=== PATIENT | male | born 1980 | race Caucasian/White ===

== ENCOUNTER 2019-08-10 03:00 | Inpatient (IN) | payer MEDICARE ==
[~2019-08-10] VITALS: Ht 195.6 cm; Wt 121.2 kg
[~2019-08-10 03:00] MED LIST: CARB200T PO; CLON1TAB PO; ESOM20CA PO; RISP1TAB45 PO
[2019-08-10] MEDS ORDERED: CARB200T PO ×2 (03:28→05:18)
[2019-08-10] MEDS ORDERED: ACETAMINOPHEN 500 MG TABLET PO ONE (03:30)
[2019-08-10] MEDS ORDERED: SODIUM CHLORIDE 0.9% 1,000ML IVBOLUS ONE ×2 (03:30→04:30)
[2019-08-10] MEDS ORDERED: IBUPROFEN 800 MG TABLET ONE (03:34)
--- NOTE | 2019-08-10 03:40 | NUR ---
BREAK RN: PT. REPORTS HE CAN'T TAKE TYLENOL IT INTERFERES WITH HIS OTHER MEDS PER HIS MD. DISCUSSED WITH DR. COOPER AND 800MG OF PO IBUPROFEN TO BE GIVEN INSTEAD. PT. REPORTS HIS LAST DOES OF IBUPROFEN WAS AT 8PM LAST NIGHT. LAB AT FOR BLOOD DRAW; MADDI FERNÁNDEZ WORKING ON IV START.
[2019-08-10 03:56] LABS: MEAN CORPUSCULAR HEMOGLOBIN 31.2 pg (27.5-34.5); MEAN CORPUSCULAR HGB CONC 33.6 g/dL (33.2-36.2); MEAN PLATELET VOLUME 7.9 fL (7.4-10.4); PLATELET COUNT 171 x10^3/uL (130-400); RED CELL DISTRIBUTION WIDTH 13.6 % (9.4-14.8)
[2019-08-10 04:07] LABS: ALANINE AMINOTRANSFERASE 25 U/L (12-78); ALBUMIN 3.7 g/dL (3.4-5.0); ANION GAP 5 mmol/L (5-15); CALCIUM 8.4 mg/dL (8.5-10.1); CHLORIDE 104 mmol/L (98-107); CREATININE 1.31 mg/dL (0.7-1.3)
[2019-08-10 04:12] LABS: ALKALINE PHOSPHATASE 78 U/L (45-117); BILIRUBIN,TOTAL 0.7 mg/dL (0.2-1.0); TOTAL PROTEIN 7.4 g/dL (6.4-8.2); TROPONIN I < 0.015 ng/mL (0.000-0.045)
[2019-08-10 04:18] LABS: MD YES
[2019-08-10 04:19] LABS: BAND#(MANUAL) 1.36 x10^3/uL; BANDS%(MANUAL) 10 % (0-7); LYMPH#(MANUAL) 1.22 x10^3/uL (1-3.4); LYMPHS% (MANUAL) 9 % (22-44); REACTIVE LYMPHS # (MANUAL) 0.27 x10^3/uL (0-0); REACTIVE LYMPHS % (MANUAL) 2 % (0-0); SEG#(MANUAL) 10.74 x10^3/uL (1.8-6.8); SEGS% (MANUAL) 79 % (42-75)
[2019-08-10 04:20] LABS: <PLATELET ESTIMATE> ADEQUATE; <PLT MORPHOLOGY> NORMAL PLT MORPH; <RBC MORPHOLOGY> NORMAL
[2019-08-10] MEDS ORDERED: CEFTRIAXONE PMX 1GM/50ML 50 ML IVPB ONE (04:30)
[2019-08-10] MEDS ORDERED: IBUPROFEN 800 MG TABLET PO ONE (04:30)
[2019-08-10] MEDS ORDERED: AZITHROMYCIN 500 MG in SODIUM CHLORIDE 0.9% 250 ML IV ONE (04:30)
[2019-08-10] MEDS ORDERED: SODIUM CHLORIDE 0.9% 1,000 ML IV ONE (04:34)
--- NOTE | 2019-08-10 04:36 | NUR ---
URINE SAMPLE SENT
[2019-08-10] MEDS ORDERED: CEFTRIAXONE PMX 1GM/50ML 50 ML ONE (04:37)
[2019-08-10 04:53] LABS: CULTURE INDICATED? YES; MICROSCOPIC INDICATED
--- NOTE | 2019-08-10 05:15 | NUR ---
Report given to Alina LINDA.
[2019-08-10] MEDS ORDERED: OLAN10TA3 PO (05:18)
[2019-08-10] MEDS ORDERED: CLON0.1T22 PO (05:18)
[2019-08-10] MEDS ORDERED: OLAN2.5T3 PO (05:18)
[2019-08-10 05:46] VITALS: BP 107/66
[2019-08-10] MEDS ORDERED: DOCUSATE 100 MG CAPSULE PO PRN (06:00)
[2019-08-10] MEDS ORDERED: PROMETHAZINE 25 MG/ML, 1ML IM PRN (06:00)
[2019-08-10] MEDS ORDERED: ONDANSETRON 2MG/ML, 2ML IVPush PRN (06:00)
[2019-08-10] MEDS ORDERED: ONDANSETRON ODT 4 MG PO PRN (06:00)
[2019-08-10] MEDS ORDERED: BISACODYL 10 MG SUPP PR PRN (06:00)
[2019-08-10] MEDS ORDERED: IBUPROFEN 600 MG TABLET PO PRN (06:00)
[2019-08-10] MEDS ORDERED: hydrALAzine 20 MG/ML, 1ML IVPush PRN (06:00)
[2019-08-10] MEDS ORDERED: morphine SULFATE 10 MG/ML, 1ML IVPush PRN (06:00)
[2019-08-10] MEDS ORDERED: CEFTRIAXONE PMX 1GM/50ML 50 ML IV ONE (06:00)
[2019-08-10] MEDS ORDERED: POLYETHYLENE GLYCOL 17 GM PACKET PO PRN (06:00)
[2019-08-10] MEDS: LACTATED RINGERS 1,000 ML IV SCH ×2 (06:21→16:10)
[2019-08-10 06:37] LABS: FREE T4 (FREE THYROXINE) 0.85 ng/dL (0.76-1.46)
[2019-08-10 07:02] VITALS: BP 121/82
[2019-08-10 08:24] LABS: RAPID INFLUENZA A Negative (Negative); RAPID INFLUENZA B Negative (Negative)
[2019-08-10] MEDS: DOXYCYCLINE 100MG TABLET PO SCH ×2 (08:26→20:06)
[2019-08-10] MEDS: BENZTROPINE 1 MG TABLET PO SCH ×2 (08:26→20:06)
[2019-08-10] MEDS: OLANZAPINE 2.5 MG TABLET PO SCH (08:26)
[2019-08-10] MEDS: GUAIFENESIN ER 600 MG TABLET PO SCH ×2 (08:26→20:06)
[2019-08-10] MEDS: CARBAMAZEPINE 200 MG TABLET PO SCH ×3 (08:26→20:05)
[2019-08-10] MEDS: ENOXAPARIN 40 MG/0.4 ML SQ SCH (08:27)
[2019-08-10] MEDS: OXYcodone IR 5MG TABLET PO PRN ×2 (11:00→16:40)
[2019-08-10 13:20] VITALS: BP 111/67
[2019-08-10 18:36] VITALS: BP 134/72
[2019-08-10] MEDS: SODIUM CHLORIDE 0.9% 1,000 ML IV SCH (18:38)
[2019-08-10] MEDS ORDERED: OLANZAPINE 10 MG TABLET PO SCH (21:00)
[2019-08-11 00:36] VITALS: BP 113/71
[2019-08-11] MEDS: SODIUM CHLORIDE 0.9% 1,000 ML IV SCH ×2 (01:04→07:30)
[2019-08-11] MEDS ORDERED: CEFTRIAXONE PMX 2GM/50ML 50 ML IV SCH (03:00)
[2019-08-11 05:15] LABS: BASOPHILS # (AUTO) 0.03 x10^3/uL (0-0.1); BASOPHILS % (AUTO) 0 % (0-1); EOSINOPHILS # (AUTO) 0.06 x10^3/uL (0-0.4); EOSINOPHILS % (AUTO) 1 % (1-7); LYMPHOCYTES # (AUTO) 1.59 x10^3/uL (1-3.4); LYMPHOCYTES % (AUTO) 16 % (22-44); MD NO; MEAN CORPUSCULAR HGB CONC 33.1 g/dL (33.2-36.2); MEAN CORPUSCULAR VOLUME 93.7 fL (81-97); MEAN PLATELET VOLUME 8.5 fL (7.4-10.4); MONOCYTES # (AUTO) 0.76 x10^3/uL (0.2-0.8); MONOCYTES % (AUTO) 8 % (2-9); NEUTROPHILS # (AUTO) 7.69 x10^3/uL (1.8-6.8); NEUTROPHILS % (AUTO) 76 % (42-75); PLATELET COUNT 163 x10^3/uL (130-400); RED BLOOD COUNT 4.21 x10^6/uL (4.38-5.82); RED CELL DISTRIBUTION WIDTH 13.8 % (9.4-14.8)
[2019-08-11 05:19] LABS: ALANINE AMINOTRANSFERASE 21 U/L (12-78); ALBUMIN 2.9 g/dL (3.4-5.0); ANION GAP 6 mmol/L (5-15); CALCIUM 8.1 mg/dL (8.5-10.1); CHLORIDE 112 mmol/L (98-107); CHOLESTEROL, TOTAL 133 mg/dL (140-239); TRIGLYCERIDES 81 mg/dL (50-200); VLDL CHOLESTEROL 16 mg/dL (0-25)
[2019-08-11 05:21] LABS: ALKALINE PHOSPHATASE 69 U/L (45-117); BILIRUBIN,TOTAL 0.3 mg/dL (0.2-1.0); HDL CHOL % 33 % (26-37); HDL CHOLESTEROL (DIRECT) 44 mg/dL (40-60); LDL CHOLESTEROL,CALCULATED 73 mg/dL (54-169); LDL/HDL RATIO 1.7 (0.5-3.0); TOTAL PROTEIN 6.9 g/dL (6.4-8.2)
[2019-08-11 07:56] VITALS: BP 136/84
[2019-08-11] MEDS: CARBAMAZEPINE 200 MG TABLET PO SCH (07:56)
[2019-08-11] MEDS: GUAIFENESIN ER 600 MG TABLET PO SCH (07:56)
[2019-08-11] MEDS: OLANZAPINE 2.5 MG TABLET PO SCH (07:57)
[2019-08-11] MEDS: ENOXAPARIN 40 MG/0.4 ML SQ SCH (07:57)
[2019-08-11] MEDS: BENZTROPINE 1 MG TABLET PO SCH (07:57)
[2019-08-11] MEDS: DOXYCYCLINE 100MG TABLET PO SCH (08:00)
[2019-08-11] MEDS ORDERED: CEFD300C37 PO (09:40)
[2019-08-11] MEDS ORDERED: ALBU18HF INH (09:40)
[2019-08-11] MEDS ORDERED: GUAI600T31 PO (09:40)
[2019-08-11] MEDS ORDERED: DOXY100T PO (09:40)
[2019-08-11] MEDS ORDERED: FLU VACC QS2019-20 36MOS UP/PF 0.5 ML IM-VACC ONE (12:00)
== END 2019-08-11 12:40 | disposition home or self-care (01) | DRG 871 ==
LOC: ED 04:26 → EDIP 05:02 → 4EST 05:38 → DCLOUNGE 08-11 12:03
PROVIDERS: ADMIT Internal Medicine; ATTEND Internal Medicine
PROC: 5A09357 Assistance with Respiratory Ventilation, Less than 24 Consecutive Hours, Continuous Positive Airway Pressure (ICD-10-PCS; principal; 2019-08-11)
DX: A41.9 Sepsis, unspecified organism (principal); N17.0 Acute kidney failure with tubular necrosis; J15.9 Unspecified bacterial pneumonia; J96.00 Acute respiratory failure, unspecified whether with hypoxia or hypercapnia; R65.20 Severe sepsis without septic shock; F41.9 Anxiety disorder, unspecified; Z82.49 Family history of ischemic heart disease and other diseases of the circulatory system; Z87.01 Personal history of pneumonia (recurrent); Z87.891 Personal history of nicotine dependence; Z83.3 Family history of diabetes mellitus; F99 Mental disorder, not otherwise specified
CPT/HCPCS: 36415; 71045; 80053; 80061; 81001; 83036; 83605; 83735; 84145; 84439; 84443; 84484; 85025; 87040; 87086; 87400; 93005; 96374; 96375; G0378; J0456; J0696; J1650; J7030; J7050; J7120

== ENCOUNTER 2019-12-07 15:24 | Outpatient (CLI) | payer MEDICARE ==
[~2019-12-07 15:24] MED LIST changes: +ALBU18HF INH; +CEFD300C37 PO; +CLON0.1T22 PO; +DOXY100T PO; +GUAI600T31 PO; +OLAN10TA3 PO; +OLAN2.5T3 PO
== END 2019-12-07 23:59 | disposition home or self-care (01) ==
LOC: CFH 15:24
PROVIDERS: ATTEND Nurse Practitioner
DX: M79.89 Other specified soft tissue disorders (principal)